=== PATIENT | male | born 1990 | race African-American/Black ===

== ENCOUNTER 2024-01-31 08:49 | Emergency (ER) | payer MEDICAID, SELFPAY ==
[~2024-01-31] VITALS: Ht 177.8 cm; Wt 77.8 kg
[2024-01-31 08:51] VITALS: BP 140/96; TEMP 96.8; O2SAT 98
[2024-01-31 10:48] LABS: Trichomonas vaginalis (AMP) NOT DETECTED (NEGATIVE)
[2024-01-31] MEDS ORDERED: DOXY100T PO (10:50)
[2024-01-31] MEDS: cefTRIAXone 500MG VIAL IM ONE (11:11)
[2024-01-31] MEDS: LIDOCAINE 1% SDV 5ML VIAL DILUENT ONE (11:11)
[2024-01-31] MEDS: DOXYCYCLINE HYCLATE 100MG TABLET PO ONE (11:11)
[2024-01-31 11:13] LABS: GC DNA AMPLIFICATION NEGATIVE (NEGATIVE)
[2024-01-31 12:19] LABS: HEPATITIS B SURFACE ANTIBODY POSITIVE (POSITIVE)
[2024-01-31 12:31] LABS: HEPATITIS B SURFACE ANTIGEN NEGATIVE (NEGATIVE)
[2024-01-31 12:44] LABS: HIV 1&2 SCREEN NEGATIVE (NEGATIVE)
[2024-01-31 12:53] LABS: HEPATITIS C VIRUS ABY INDEX < 0.02 INDEX (<0.8)
== END 2024-01-31 11:43 | disposition home or self-care (01) ==
LOC: M ED 08:49
DX: N45.1 Epididymitis (principal); Z53.9 Procedure and treatment not carried out, unspecified reason; N43.3 Hydrocele, unspecified; N43.41 Spermatocele of epididymis, single
CPT/HCPCS: 76870; 86706; 86780; 86803; 87340; 87389; 87661; 87810; 87850; 93976; 96372; 99282; J0696